=== PATIENT | female | born 1985 | race Two or more races ===

== ENCOUNTER → 2019-07-12 | Outpatient (CLI) | payer OTHER | END | disposition home or self-care (01) | LOC: PRENATAL 11:57 | DX: O34.83 Maternal care for other abnormalities of pelvic organs, third trimester (principal); N83.291 Other ovarian cyst, right side; O28.3 Abnormal ultrasonic finding on antenatal screening of mother; O36.80X1 Pregnancy with inconclusive fetal viability, fetus 1; O09.523 Supervision of elderly multigravida, third trimester ==

== ENCOUNTER → 2019-08-16 | Outpatient (CLI) | payer OTHER | END | disposition home or self-care (01) | LOC: PRENATAL 10:42 | DX: O28.3 Abnormal ultrasonic finding on antenatal screening of mother (principal); O34.80 Maternal care for other abnormalities of pelvic organs, unspecified trimester; O35.3XX0 Maternal care for (suspected) damage to fetus from viral disease in mother, not applicable or unspecified; O09.529 Supervision of elderly multigravida, unspecified trimester ==